=== PATIENT | female | born 1945 | race Caucasian/White ===

== ENCOUNTER → 2017-07-04 | Outpatient (CLI) | payer MEDICARE | LOC: MC.RAD 14:00 | DX: Z12.31 Encounter for screening mammogram for malignant neoplasm of breast (principal); Z80.3 Family history of malignant neoplasm of breast ==

== ENCOUNTER 2019-03-20 10:09 | Outpatient (CLI) | payer MEDICARE ==
[~2019-03-20] VITALS: Ht 167.6 cm; Wt 56.9 kg
[2019-03-20 10:20] VITALS: BP 173/71; PULSE 87; TEMP 97.4
[2019-03-20] MEDS ORDERED: MULTI VITAMINS1 TAB PO (10:25)
[2019-03-20] MEDS ORDERED: ASPIRIN 32325 MG/TA1 PO (10:35)
[2019-03-20 10:41] VITALS: BP 143/69; PULSE 86
== END 2019-03-20 10:59 | disposition home or self-care (01) ==
LOC: EUO 10:09
DX: M81.0 Age-related osteoporosis without current pathological fracture (principal)
CPT/HCPCS: J0897

== ENCOUNTER 2019-09-05 13:43 | Outpatient (CLI) | payer MEDICARE ==
[~2019-09-05] VITALS: Ht 167.6 cm; Wt 60.0 kg
[~2019-09-05 13:43] MED LIST: ASPIRIN 32325 MG/TA1 PO; MULTI VITAMINS1 TAB PO
[2019-09-05] MEDS ORDERED: OSCAL 500 TAB500 MG PO (13:51)
[2019-09-05 13:53] VITALS: BP 131/77; PULSE 87; TEMP 98
== END 2019-09-05 14:47 | disposition home or self-care (01) ==
LOC: EUO 13:43
DX: M81.0 Age-related osteoporosis without current pathological fracture (principal)
CPT/HCPCS: J0897

== ENCOUNTER 2020-03-10 15:03 | Outpatient (CLI) | payer MEDICARE ==
[~2020-03-10 15:03] MED LIST changes: +OSCAL 500 TAB500 MG PO
[2020-03-10 15:19] VITALS: BP 149/74; PULSE 84; TEMP 97.9
== END 2020-03-10 15:22 | disposition home or self-care (01) ==
LOC: EUO 15:03
DX: M81.0 Age-related osteoporosis without current pathological fracture (principal)
CPT/HCPCS: J0897

== ENCOUNTER → 2020-05-21 | Outpatient (CLI) | payer MEDICARE | LOC: MC.RAD 11:25 | DX: Z12.31 Encounter for screening mammogram for malignant neoplasm of breast (principal) ==

== ENCOUNTER 2020-09-11 15:18 | Outpatient (CLI) | payer MEDICARE ==
[~2020-09-11] VITALS: Ht 167.6 cm; Wt 62.7 kg
[2020-09-11 15:49] VITALS: BP 154/92; PULSE 78; TEMP 98.4
== END 2020-09-11 16:29 | disposition home or self-care (01) ==
LOC: EUO 15:18
DX: M81.0 Age-related osteoporosis without current pathological fracture (principal)
CPT/HCPCS: J0897

== ENCOUNTER 2021-03-16 14:01 | Outpatient (CLI) | payer MEDICARE ==
[~2021-03-16] VITALS: Ht 167.6 cm; Wt 58.1 kg
[2021-03-16 14:33] VITALS: BP 166/68; PULSE 82; TEMP 98.3
== END 2021-03-16 15:10 | disposition home or self-care (01) ==
LOC: EUO 14:01
DX: M81.0 Age-related osteoporosis without current pathological fracture (principal); Z79.899 Other long term (current) drug therapy
CPT/HCPCS: J0897

== ENCOUNTER → 2021-09-16 | Outpatient (CLI) | payer MEDICARE | LOC: MC.RAD 10:13 | DX: Z12.31 Encounter for screening mammogram for malignant neoplasm of breast (principal) ==

== ENCOUNTER 2021-10-08 15:03 | Outpatient (CLI) | payer MEDICARE ==
[~2021-10-08] VITALS: Ht 167.6 cm; Wt 60.2 kg
[2021-10-08 15:30] VITALS: BP 151/68; PULSE 72; TEMP 98.6
--- NOTE | 2021-10-08 15:51 | NUR ---
Pt ambulates out from dept with steady gait following prolia injection.
== END 2021-10-08 15:51 | disposition home or self-care (01) ==
LOC: EUO 15:03
DX: M81.0 Age-related osteoporosis without current pathological fracture (principal)
CPT/HCPCS: J0897

== ENCOUNTER 2022-05-03 14:47 | Outpatient (CLI) | payer MEDICARE ==
[~2022-05-03] VITALS: Ht 167.6 cm; Wt 56.0 kg
[2022-05-03 15:15] VITALS: BP 151/80; PULSE 84; TEMP 98.6
== END 2022-05-03 15:42 ==
LOC: EUO 14:47
DX: M81.0 Age-related osteoporosis without current pathological fracture (principal)
CPT/HCPCS: J0897

== ENCOUNTER 2023-11-15 13:52 | Outpatient (CLI) | payer MEDICARE ==
[~2023-11-15] VITALS: Ht 167.6 cm; Wt 57.3 kg
[~2023-11-15 13:52] MED LIST changes: +PROLIA60 MG/ML SQ
[2023-11-15 14:05] VITALS: BP 153/64; PULSE 66; TEMP 97.5
[2023-11-15] MEDS ORDERED: Denosumab 60 MG/ML SYRINGE SQ ONE (14:15)
== END 2023-11-15 14:11 | disposition home or self-care (01) ==
LOC: EUO 13:52
DX: M81.0 Age-related osteoporosis without current pathological fracture (principal)
CPT/HCPCS: J0897

== ENCOUNTER 2024-06-06 14:56 | Outpatient (CLI) | payer MEDICARE ==
[~2024-06-06] VITALS: Ht 167.6 cm; Wt 56.2 kg
[2024-06-06 15:01] VITALS: BP 147/63; PULSE 75; TEMP 97.6
[2024-06-06] MEDS ORDERED: Denosumab 60 MG/ML SYRINGE SQ ONE (15:15)
== END 2024-06-06 15:19 | disposition home or self-care (01) ==
LOC: EUO 14:56
DX: M81.0 Age-related osteoporosis without current pathological fracture (principal)
CPT/HCPCS: J0897